=== PATIENT | male | born 1945 | race Caucasian/White ===

== ENCOUNTER 2017-09-16 06:53 | Day surgery (SDC) | payer OTHER, MEDICARE ==
--- NOTE | 2017-08-28 08:39 | HP ---
DATE OF ADMISSION: 09/16/2017 HISTORY: This is a 72-year-old man admitted through the ambulatory surgical service for reduction and repair of a chronically incarcerated ventral hernia. According to the patient, he has had the hernia for at least 5 years' time. It has become progressively larger in size and associated with some discomfort. No underlying GI, , or respiratory complaints to suggest predisposition to hernia formation. 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 No history of hypertension, heart disease, diabetes, respiratory, renal, or hepatic insufficiency. PAST SURGICAL HISTORY: Significant for excision of a lipoma left lower back. ALLERGIES: None known. MEDICATIONS: Regular medications, none. SOCIAL HISTORY: Negative tobacco. Essentially negative alcohol. FAMILY HISTORY: Significant for heart disease (sister). REVIEW OF SYSTEMS: Otherwise nil. PHYSICAL EXAMINATION: General: Patient examined in erect supine position. Abdomen: There is an obvious hernia involving the of the abdomen extending up into the lower midline. There is some moderate diastasis recti stemming from the xiphoid process to the umbilicus. The hernia is partially, but not entirely, reducible. IMPRESSION: Chronically incarcerated ventral hernia. PLAN: Reduction and repair of chronically incarcerated ventral hernia with mesh , possible component separation. Indications, alternatives, possible complications reviewed. Consent obtained. The patient to be seen preoperatively by Radu Concepcion. Please refer to his notes for those medical details. Simón [id number] CC1: Simón Esquivel
[2017-09-16] MEDS ORDERED: TAMSULOSIN HCL 0.4 MG CAP.ER.24H (FP) ONE (07:13)
[2017-09-16 07:36] VITALS: BMI 25.6
[2017-09-16] MEDS ORDERED: PROPOFOL 20 ML ONE (09:03)
[2017-09-16] MEDS ORDERED: fentaNYL CITRATE 250 MCG/5 ML VIAL ONE (09:03)
[2017-09-16] MEDS ORDERED: ROCURONIUM BROMIDE 50 MG/5 ML VIAL ONE (09:03)
[2017-09-16] MEDS ORDERED: MIDAZOLAM HCL 2 MG/2 ML SINGLE DOSE VIAL ONE (09:04)
[2017-09-16] MEDS ORDERED: ePHEDrine SULFATE 50 MG/1 ML AMPULE ONE (09:28)
[2017-09-16] MEDS ORDERED: DEXAMETHASONE SOD PHOSPHATE 4 MG/1 ML VIAL ONE (09:41)
[2017-09-16] MEDS ORDERED: ONDANSETRON 4 MG/2 ML VIAL ONE (09:41)
[2017-09-16] MEDS ORDERED: ceFAZolin SODIUM 1 GM VIAL ONE (09:41)
[2017-09-16] MEDS ORDERED: NEOSTIGMINE METHYLSULFATE 0.5 MG/ML - 10 ML MDV ONE (10:00)
[2017-09-16] MEDS ORDERED: GLYCOPYRROLATE 0.2 MG/1 ML VIAL ONE (10:02)
[2017-09-16] MEDS ORDERED: LIDOCAINE HCL 1%, 10 MG/ML (20ML VIAL) ID ONE (10:31)
[2017-09-16] MEDS ORDERED: oxyCODONE HCL 5 MG TABLET PO PRN ×2 (10:33)
[2017-09-16] MEDS ORDERED: PROMETHAZINE HCL 25 MG/1 ML VIAL IVPUSH PRN (10:33)
[2017-09-16] MEDS ORDERED: ONDANSETRON 4 MG/2 ML VIAL IVPUSH PRN (10:33)
--- NOTE | 2017-09-16 12:21 | OP ---
DATE OF OPERATION: 09/16/2017 PREOPERATIVE DIAGNOSIS: Chronically incarcerated ventral hernia. POSTOPERATIVE DIAGNOSIS: Chronically incarcerated ventral hernia. PROCEDURE: Open reduction and repair of chronically incarcerated ventral hernia with mesh/intermediate wound closure ( 5 cm). OPERATING SURGEON: Carter Jimenez M.D. BLENDER: Mauri Arriaga D.O. ANESTHESIA: Carlos Pina M.D. (general) HISTORY: A 72-year-old man who presents for repair of a rather longstanding ventral hernia involving the central ring of the abdomen. Indications, alternatives, possible complications reviewed. Consent obtained. PROCEDURE: With the patient in the supine position, and after general anesthesia, the abdomen was prepped and draped in the usual sterile fashion using chlorhexidine. A 5-cm transverse infraumbilical incision was made directly over the abnormality and deepened into the subcutaneous space. The hernia sac was easily encountered. It was cleaned to the level of the fascial ring. The sac was found to contain a portion of incarcerated omentum. The sac and its contents were reduced. The preperitoneal space/retrorectus space was then created using sharp dissection, developing enough space for placement of an underlay mesh. Ultimately a Ventralex ST hernia patch measuring 8 cm in diameter was selected for the repair. It was placed in the preperitoneal/retrorectus space. It was pulled up against the undersurface of the anterior abdominal wall musculature with its straps. It was tacked circumferentially using an AbsorbaTack and counterpalpation. The straps were amputated. The wound was irrigated. Adequate hemostasis ensured. The fascia was then closed over the patch, leaving the patch entirely in the preperitoneal/retrorectus space. This was accomplished using interrupted 0 PDS sutures. The wound was irrigated once again. The wound was then closed in layers. The subcutaneous tissues were approximated using interrupted 3-0 Vicryl sutures. The subcuticular layer was approximated using interrupted 4-0 Biosyn sutures. The skin edges were approximated using 4-0 Biosyn in the subcuticular space in continuous fashion. Dermabond applied. Procedure terminated. NEEDLE AND INSTRUMENT COUNT: Correct. ESTIMATED BLOOD LOSS: Minimal. SPECIMEN: None. IMPLANT: Ventralex ST hernia patch (8 cm in diameter). Patient tolerated procedure. CARTER JIMENEZ M.D. CAROLIN/[id number] MTDD
[2017-09-16 16:49] VITALS: TEMP 97.6
[2017-09-16 17:06] VITALS: PULSE 65
[2017-09-16 17:22] VITALS: BP 122/76
== END 2017-09-16 14:15 | disposition home or self-care (01) ==
LOC: FASU 06:53
PROVIDERS: ATTEND Surgery
PROC: 0WUF0JZ Supplement Abdominal Wall with Synthetic Substitute, Open Approach (ICD-10-PCS; principal; 2017-09-16 08:30)
DX: K43.6 Other and unspecified ventral hernia with obstruction, without gangrene (principal)
CPT/HCPCS: 94760

== ENCOUNTER 2018-07-28 15:05 | Emergency (ER) | payer OTHER, MEDICARE | END 2018-07-28 16:03 | disposition home or self-care (01) | LOC: FER 15:05 ==

== ENCOUNTER 2021-11-29 16:41 | Emergency (ER) | payer OTHER, MEDICARE ==
[2021-11-29] MEDS ORDERED: IBUPROFEN 400 MG TABLET (FP) PO ONE ×2 (16:43→16:52)
[2021-11-29] MEDS ORDERED: LIDOCAINE 5% TOPICAL PATCH TP ONE (16:43)
[2021-11-29] MEDS ORDERED: LIDOCAINE 5% TOPICAL PATCH ONE (16:52)
[2021-11-29 16:58] VITALS: RESP 16; TEMP 99.2; BMI 25.9
[2021-11-29] MEDS ORDERED: ACETAMINOPHEN 325 MG TABLET (FP) PO ONE (17:17)
[2021-11-29] MEDS ORDERED: ACETAMINOPHEN 325 MG TABLET (FP) ONE (17:23)
[2021-11-29 18:36] LABS: ALBUMIN 3.9 g/dl (3.4-5.0); BILIRUBIN,TOTAL 0.8 mg/dl (0.2-1); CALCIUM 9.4 mg/dl (8.5-10); CREATININE 1.1 mg/dl (0.55-1.3); TOT PROT 7.1 g/dl (6.4-8.2)
[2021-11-29 19:40] VITALS: BP 138/85; PULSE 75
[2021-11-29] MEDS ORDERED: LIDOCAINE PATCH REMOVAL MC SCH (22:00)
== END 2021-11-29 19:43 | disposition home or self-care (01) ==
LOC: FER 16:41
DX: M54.50 Low back pain, unspecified (principal)
CPT/HCPCS: 36415; 74176-TC; 80053; 81003; 81015; 87086; 99284-25